=== PATIENT | male | born 1965 | race Caucasian/White ===

== ENCOUNTER 2016-07-01 13:17 | Day surgery (SDC) | payer OTHER ==
[~2016-07-01] VITALS: Ht 172.7 cm; Wt 95.0 kg
--- NOTE | 2016-07-01 08:02 | PCM.HPANE ---
Patient Data Surgeon Admitting Provider: Attending Provider:Chris Ellison MD Primary Care Physician:Nathanael Guzamn MD Other Provider:[facility] Reason for Visit Guaiac Positive Stool Ht/WT & BMI Body Mass Index Allergies Coded Allergies: No Known Allergies (Verified Allergy, Mild, 03/20/16) Medications Reported Medications Spironolactone 50 Mg Bsrrfh78 Mg PO DAILY #30 TABLET Ref 0 03/20/16 Omeprazole Magnesium (Prilosec Otc)20 Mg Tablet.dr20 Mg PO DAILY #1 PKG Ref 0 03/20/16 Lactulose 10 Gm/15 Ml Mokutdpg94 Gm PO 03/20/16 Furosemide 40 Mg Eckyaq34 Mg PO DAILY 03/20/16 Folic Acid 1 Mg Tablet1 Mg PO DAILY 30 Days 03/20/16 Discontinued Reported Medications [place] Carbonate 300 Mg Tablet.er300 Mg PO BID 03/20/16 [place] Carbonate ([place] Carbonate XR)450 Mg Tablet.er450 Mg PO BID 30 Days 03/20/16 History Gastrointestinal History: Positive for:: Liver Disease Other GI Pertinent History: alcoholic cirrhosis query varices Stop/Bang ANTHONY Risk Assessment: Low Risk, <3 Yes Risk Assessment Category Category 1A: Patient has history of documented sleep apnea, and HAS NOT received any narcotic, sedative or anesthesia administration during this stay. Category 1B: Patient has history of documented sleep apnea, and HAS received any narcotic , sedative or anesthesia administration during this stay Category 2: Patient has SUSPECTED Obstructive Sleep Apnea, and HAS received any narcotic , sedative or anesthesia administration during this stay. Category 3: Patient has SUSPECTED Obstructive Sleep Apnea and HAS NOT received narcotic, sedative or anesthesia administration during this stay. Category 4: Outpatient in Procedural Areas with known sleep apnea or who screen positive for High Risk via the STOP/BANG questionnaire. Exam Exam General Appearance: Alert, Oriented X3, Cooperative, No Acute Distress HEENT/AIRWAY: MP 2 Lungs: Clear to Auscultation, Normal Air Movement Heart: Exam Unremarkable, Regular Rate/Rhythm, No Murmurs/Rubs/Gallops Plan Impression Patient chart reviewed, patient interviewed and anesthestic plan with risks, benefits, and alternatives discussed, and informed consent obtained. Anesthetic Plan: MAC Bene/Risks/Altern/Consents: Yes HP Complete Prior to Induction: Yes Kelsi Baker MD Jul 01, 2016 08:02
[~2016-07-01 13:17] MED LIST: 0.9% Sodium Chloride 1,000 ML IV SCH; FOLI1TAB18 PO; FURO40TA4 PO; LACT10SO27 PO; LIT450 PO; LITH300T PO; Lactated Ringer's 1,000 ML IV ONE; OMEP20TA24 PO; SPIR50TA2 PO; Sodium Chloride LOK Flush 10 mL Syringe IV PRN; fentaNYL-PF 50 mCg/mL 2 mL Inj IVPUSH PRN
[2016-07-01] MEDS ORDERED: fentaNYL-PF 50 mCg/mL 2 mL Inj ONE (13:18)
[2016-07-01] MEDS ORDERED: Propofol 10,000 mCg/mL 20 mL Inj ONE (13:18)
[2016-07-01 13:32] VITALS: BP 149/94; PULSE 89; RESP 17; O2SAT 98
[2016-07-01] MEDS ORDERED: Lactated Ringer's 1,000 ML IV ONE (14:19)
[2016-07-01] MEDS ORDERED: Lactated Ringer's 1,000 ML IV SCH (14:22)
--- NOTE | 2016-07-01 14:22 | PCM.ANEP1 ---
Post Anesthesia Phase 1 PACU Phase 1 Assessment Vital Signs Vital Signs Date Time Temp Pulse Resp B/P Pulse Ox O2 Delivery O2 Flow Rate FiO2 07/01/16 13:32 37.5 89 17 149/94 98 Room Air Anesthetic Administered: MAC Level of Alertness: Awake, talking CHAN's with Equal Strength: Yes Pain: No Nausea or Vomiting: No Oxygen Delivery: Nasal Cannula Lungs: Clear to Auscultation, Normal Air Movement Kelsi Baker MD Jul 01, 2016 14:22
--- NOTE | 2016-07-01 14:23 | PCM.ANEP2 ---
Post Anesthesia Evaluation ASA/CMS Post Anesthesia VS in Patient's Normal Range?: Yes Resp Stable; Airway Patent?: Yes CV Function & Hydration Stable: Yes Mental Status Recovered?: Yes Pain control Satisfactory?: Yes N/V Control Satisfactory?: Yes Kelsi Baker MD Jul 01, 2016 14:23
[2016-07-01] MEDS ORDERED: Ondansetron 2 mg/mL 2 mL Inj IVPUSH PRN (14:25)
[2016-07-01] MEDS ORDERED: MetoCLOpramide 5 mg/mL 2 mL Inj IVPUSH PRN (14:25)
[2016-07-01 14:27] VITALS: BP 124/78; PULSE 86; RESP 16; O2SAT 97
[2016-07-01 14:37] VITALS: BP 134/81; PULSE 84; RESP 16; O2SAT 98
--- NOTE | 2016-07-01 14:55 | ENDO ---
[address] [address] ENDOSCOPY PROCEDURE PATIENT: NOBLE ANDREWS : 1965 MR#: [id number] ADMIT: 07/01/2016 JOB ID: [id number] DATE: 07/01/2016 TYPE OF OPERATION: Esophagogastroduodenoscopy and colonoscopy with biopsy. PREOPERATIVE DIAGNOSIS(ES): Cirrhosis, guaiac-positive stools. POSTOPERATIVE DIAGNOSIS(ES): 1. Grade 4 esophageal varices, four columns seen, without stigmata of bleed or red radha sign. 2. Gastric varices seen on retroflexion. 3. Two sigmoid polyps, largest size 3 mm diameter status post biopsy and hemoclip placed due to the mild post polypectomy bleed with good hemostasis. 4. Moderate rectal varices seen on retroflexion. ANESTHESIA: Monitored anesthesia care. COMPLICATIONS: None. BLOOD LOSS: Minimal. DESCRIPTION OF PROCEDURE: After risks and benefits were explained to the patient, informed consent was obtained. After anesthesia administered, upper endoscope was then inserted into mouth intubating the esophagus, stomach, second portion of the duodenum while the mucosa was carefully examined. After the procedure was done, the scope withdrawn and procedure terminated. A colonoscope was inserted per the rectum to the cecum while mucosa carefully examined. Prep of the patient was excellent. After procedure was done, the scope was withdrawn and the procedure terminated. FINDINGS: Upon inspection of the esophagus, there were four columns of grade 4 esophageal varices without stigmata of bleed or red radha sign. Z-line located 40 cm from incisors. Upon entry into the stomach, there is moderate portal hypertensive gastropathy seen throughout the entire stomach, but no masses or ulcers were seen. Retroflexion showed evidence of gastric varices nonbleeding that was seen. Duodenal bulb, first portion were normal. Upon inspection of the anus, no masses, hemorrhoids, ulcers, or fissures that were seen. Throughout the entire examination, there were two sigmoid polyps measuring 3 mm in diameter removed by cold biopsy forceps. There was mild bleeding that happened afterwards and hemoclips were placed at both polypectomy sites with good hemostasis. There are no other polyps or masses that were seen. Retroflexion showed moderate rectal varices that were seen. They were nonbleeding. IMPRESSIONS: 1. Moderate rectal varices. 2. Two sigmoid colon polyps measuring 3 mm in size, status post biopsy and hemoclips placed of both post polypectomy sites. 3. Moderate portal hypertensive gastropathy. 4. Gastric varices nonbleeding upon retroflexion. 5. Grade 4 esophageal varices, four columns, without red radha sign. RECOMMENDATIONS: 1. Will refer the patient to [facility] for evaluation for TIPS. 2. Await pathology results. If tubular adenoma, then next colonoscopy in five years.
--- NOTE | 2016-07-04 15:43 | PATH ---
SURGICAL PATHOLOGY Attending Physician:Chris Ellison MD CASE STATUS: Signed Out PATIENT NAME: NOBLE ANDREWS PID: [id number] : 1965 DATE COLLECTED:07/01/2016 00:00 SPECIMEN: Colon, Biopsy CLINICAL HISTORY: A: SIGMOID POLYPS FINAL DIAGNOSIS: 1.SIGMOID POLYPS: HYPERPLASTIC POLYPS. ICD10 CODE K63.5 GROSS DESCRIPTION: The specimen is received in one formalin filled container labeled with the patient's name, sublabeled "sigmoid polyps" and consists of 2 portions of tissue which aggregate to 0.3 x 0.3 x 0.2 CM. The specimen is entirely submitted in one cassette. 07/02/2016 [facility] MICRO DESCRIPTION: See diagnosis. ICD-9 CODES: CPT CODES: 1: 61805 Electronically Signed Out Jessi Ward MD [facility], [place] [address] Technical component performed at [facility], [address] [place] [address] Ave[address], [place], [address]
== END 2016-07-01 23:59 | disposition home or self-care (01) ==
LOC: END 13:17
PROVIDERS: ATTEND Internal Medicine Gastroenterology
DX: K63.5 Polyp of colon (principal); I85.10 Secondary esophageal varices without bleeding; K70.31 Alcoholic cirrhosis of liver with ascites; I86.4 Gastric varices; K31.89 Other diseases of stomach and duodenum; I86.8 Varicose veins of other specified sites
CPT/HCPCS: 43235; 45380; J2250; J7120